=== PATIENT | female | born 1990 | race Caucasian/White ===

== ENCOUNTER 2016-11-23 02:09 | Emergency (ER) | payer OTHER ==
[~2016-11-23] VITALS: Ht 165.1 cm; Wt 113.0 kg
[~2016-11-23 02:09] MED LIST: IRON18TA PO; PREN1TAB49 PO
[2016-11-23 02:17] VITALS: Ht 165.1 cm; Wt 113.0 kg
[2016-11-23] MEDS ORDERED: ACETAMINOPHEN 500 MG TAB PO STA (03:13)
--- NOTE | 2016-11-23 03:17 | ERD ---
ER Documentation Chief Complaint Date/Time DATE: 11/23/16 TIME: 03:15 Chief Complaint DIZZINESS, SOB, HEADACHE STARTING TODAY HPI 26-year-old female presents here in emergency department for complaints of fever , cough, dizziness, headache, shortness of breath when coughing, started today. Patient has been having dry cough, does not cough up any phlegm or blood. Patient as episodes of shortness of breath. Patient denies any wheezing. Patient states she feels body aches. Patient started to have fever. Patient complain of headache, throbbing pain, 4/10 scale, accompanied with dizziness. Patient described the dizziness as fatigability and weakness. She did not take any medications to help with symptoms. Patient denies any chest pain or palpitations. Patient denies any dyspnea on exertion or dyspnea on on lying down. Patient denies any sick contacts. ROS All systems reviewed and are negative except as per history of present illness. Medications Home Meds Active Scripts Albuterol Sulfate* (Proair HFA*) 8.5 Gm Hfa.aer.ad, 2 PUFF INH Q4H Y for WHEEZING AND SOB, #1 INHALER Prov:SANNA MARTIN NP 11/23/16 Azithromycin* (Zithromax*) 250 Mg Tablet, 250 MG PO .ZPACK DIRECTED, #6 TAB TAKE 500 MG (2 TABS) THE FIRST DAY THEN 250 MG (1 TAB) DAYS 2-5 Prov:SANNA MARTIN NP 11/23/16 Ibuprofen* (Motrin*) 600 Mg Tab, 600 MG PO Q6H Y for PAIN AND OR ELEVATED TEMP, #30 TAB Prov:SANNA MARTIN NP 11/23/16 Cetirizine Hcl* (Zyrtec*) 10 Mg Capsule, 10 MG PO DAILY, #30 TAB.CHEW Prov:SANNA MARTIN NP 11/23/16 Guaifenesin-Codeine Phosphate* (Guaifenesin* AC Cough Syrup) 473 Ml Liquid, 5 ML PO Q4H Y for COUGH, #60 ML Prov:SANNA MARTIN NP 11/23/16 Reported Medications Iron (Iron) 18 Mg Tablet, 18 MG PO 07/16/12 Vits W-Ca,Fe,Fa(<1MG) () 1 Tab Tablet, 1 TAB PO 07/16/12 Allergies Allergies: Coded Allergies: No Known Allergies (Verified Allergy, Unknown, 11/23/16) PMhx/Soc Medical and Surgical Hx: pt denies Medical Hx, pt denies Surgical Hx FmHx Family History: No coronary disease, No diabetes, No other Physical Exam Vitals Vital Signs Date Time Temp Pulse Resp B/P Pulse Ox O2 Delivery O2 Flow Rate FiO2 11/23/16 05:10 103 16 155/87 98 Room Air 11/23/16 02:17 100.0 110 20 147/82 98 Physical Exam GENERAL: The patient is well developed and appropriate for usual state of health, in no apparent distress. HEENT: Atraumatic. Ears: Normal tympanic membrane, no erythema or bulging. No ear canal swelling. No ear discharge. Nose: Erythematous nasal turbinates with clear nasal discharge. Throat: oropharynx are edematous with postnasal drip. No tonsillar swelling or tonsillar exudates. No lymphadenopathy. CHEST: Clear to auscultation bilaterally. There are no rales, wheezes or rhonchi. HEART: Regular rate and rhythm. No murmurs, clicks, rubs or gallops. No S3 or S4. ABDOMEN: Soft, nontender and nondistended. Good bowel sounds. No rebound or guarding. No gross peritonitis. No gross organomegaly or masses. No West sign or McBurney point tenderness. BACK: No midline or flank tenderness. EXTREMITIES: Equal pulses bilaterally. There is no peripheral clubbing, cyanosis or edema. No focal swelling or erythema. Full range of motion. Grossly neurovascularly intact. NEURO: Alert and oriented. Cranial nerves 2-12 intact. Motor strength in all 4 extremities with 5/5 strength. Sensation grossly intact. Normal speech and gait. SKIN: There is no apparent rash or petechia. The skin is warm and dry. HEMATOLOGIC AND LYMPHATIC: There is no evidence of excessive bruising or lymphedema. No gross cervical, axillary, or inguinal lymphadenopathy. Results 24 hrs Current Medications Medications (Trade) Dose Ordered Sig/[place] Route PRN Reason Start Time Stop Time Status Last Admin Dose Admin Acetaminophen (Tylenol Tab) 500 mg ONCE STAT PO 11/23/16 03:13 11/23/16 03:15 DC 11/23/16 03:29 Ibuprofen (Motrin) 600 mg ONCE ONCE PO 11/23/16 03:30 11/23/16 03:31 DC 11/23/16 03:29 Patient was given medicines for fever control here in the emergency department. After treatment, patient temperature improved and lower. Patient appears well and is hemodynamically stable. PROCEDURE: CHEST - 1 VIEW CLINICAL INDICATION: 26-year-old female with cough and fever. TECHNIQUE: A single frontal AP view of the chest was performed. The images were reviewed on a PACS workstation. COMPARISON: None. FINDINGS: There is a shallow inspiration accentuating the heart size. Accounting for this , the cardiomediastinal silhouette is within normal limits. There is bilateral lower lung zone subsegmental atelectasis. A superimposed infiltrate cannot be excluded. The pulmonary vascularity is within normal limits. There is no evidence for pneumothorax or pneumomediastinum. The osseous structures are intact. IMPRESSION: Shallow inspiration with bilateral lower lung zone subsegmental atelectasis. A superimposed infiltrate cannot be excluded. Clinical correlation is necessary. .Robert Castro MD, Date Time Electronically viewed and signed by .Robert Castro MD, MD on 11/23/2016 04:11 .M/ CC: SANNA MARTIN HANDLE BENDER Procedures/MDM Medical Decision Making: Patient symptoms are most likely consistent with acute Bronchitis, possible atypical infection, can be also viral, considering patient's fever and chest x-ray results, patient will be trialed with azithromycin. There is low suspicion for Pneumonia at this time since patients lungs sounds are clear, patient O2 saturation is normal and patient doesnt show any respiratory distress. Patients chest xray doesnt show infiltrates or any other cardiopulmonary emergencies at this time. There is low suspicion for other cardiopulmonary emergencies at this time such as CHF, Pulmonary Embolism, Pneumothorax, or any other cardiopulmonary emergencies at this time. There is low suspicion for sepsis. Patient appears well and is hemodynamically stable. Fever is controlled with medicines. Disposition: Home. Condition: Stable Prescriptions: Albuterol, guaifenesin with codeine Zyrtec ibuprofen azithromycin Instructions: Patient is advised to take medications as prescribed. Patient is advised to rest. Patient advised to increase fluid intake, do humidifier at home and if possible, do salt water gargles. Patient is advised that if symptoms are worse, shortness of breath, uncontrolled fever, stridor, vomiting, worst signs and symptoms to return to emergency department immediately. Otherwise, patient is advised to follow up with primary doctor in 5-7 days. Departure Diagnosis: Primary Impression: Acute bronchitis Bronchitis organism: unspecified organism Qualified Code: J20.9 - Acute bronchitis, unspecified organism Condition: Stable Patient Instructions: Bronchitis, Antiobiotic Treatment (Adult) Additional Instructions: Patient is advised to take medications as prescribed. Patient is advised to rest. Patient advised to increase fluid intake, do humidifier at home and if possible, do salt water gargles. Patient is advised that if symptoms are worse, shortness of breath, uncontrolled fever, stridor, vomiting, worst signs and symptoms to return to emergency department immediately. Otherwise, patient is advised to follow up with primary doctor in 5-7 days. SANNA MARTIN NP Nov 23, 2016 03:17
[2016-11-23] MEDS ORDERED: IBUPROFEN 600 MG TAB PO ONE (03:30)
--- NOTE | 2016-11-23 04:11 | RADRPT ---
PROCEDURE: CHEST - 1 VIEW CLINICAL INDICATION: 26-year-old female with cough and fever. TECHNIQUE: A single frontal AP view of the chest was performed. The images were reviewed on a PAC S workstation. COMPARISON: None. FINDINGS: There is a shallow inspiration accentuating the heart size. Accounting for this, the cardiomediasti nal silhouette is within normal limits. There is bilateral lower lung zone subsegmental atelectasis . A superimposed infiltrate cannot be excluded. The pulmonary vascularity is within normal limits. There is no evidence for pneumothorax or pneumomediastinum. The osseous structures are intact. IMPRESSION: Shallow inspiration with bilateral lower lung zone subsegmental atelectasis. A superimposed infiltr ate cannot be excluded. Clinical correlation is necessary. .Robert Castro MD, Date Time Electronically viewed and signed by .Robert Castro MD, MD on 11/23/2016 04:11 .M/
[2016-11-23] MEDS ORDERED: IBUP-1542 PO (04:20)
[2016-11-23] MEDS ORDERED: CETI10CA PO (04:20)
[2016-11-23] MEDS ORDERED: AZIT250T94 PO (04:20)
[2016-11-23] MEDS ORDERED: GUAI473L22 PO (04:20)
[2016-11-23] MEDS ORDERED: ALBU8.5H3 INH (04:20)
[2016-11-23 05:10] VITALS: BP 155/87; PULSE 103; RESP 16
== END 2016-11-23 04:48 | disposition home or self-care (01) ==
LOC: FTE 02:09
DX: J20.9 Acute bronchitis, unspecified (principal)
CPT/HCPCS: 71010; Z7502; Z7610